=== PATIENT | female | born 1995 | race Caucasian/White ===

== ENCOUNTER → 2023-11-29 | Outpatient (CLI) | payer BC | LOC: LAB SHORT 17:23 → LAB 17:23 | PROVIDERS: Obstetrics & Gynecology | DX: Z01.419 Encounter for gynecological examination (general) (routine) without abnormal findings (principal) | CPT/HCPCS: G0123 ==

== ENCOUNTER → 2024-05-19 | Outpatient (CLI) | payer BC | LOC: LAB SHORT 16:26 → LAB 16:26 | DX: O09.93 Supervision of high risk pregnancy, unspecified, third trimester (principal) | CPT/HCPCS: 87081; 87150 ==

== ENCOUNTER 2024-06-11 18:45 | Inpatient (IN) | payer BC ==
[~2024-06-11] VITALS: Ht 180.3 cm; Wt 98.6 kg
[2024-06-11] MEDS ORDERED: OXYTOCIN/RINGER'S LACTATE 500 ML IV PRN ×2 (19:05→19:10)
[2024-06-11] MEDS ORDERED: Lactated Ringer's 1,000 ML IV PRN ×4 (19:05→19:10)
[2024-06-11] MEDS ORDERED: Misoprostol 200 MCG Tab BC PRN (19:05)
[2024-06-11] MEDS ORDERED: Misoprostol 200 MCG Tab PR PRN (19:05)
[2024-06-11] MEDS ORDERED: Tranexamic Acid 100 ML IV SCH (19:05)
[2024-06-11] MEDS ORDERED: Methylergonovine Maleate 0.2MG / ML 1ML Amp IM PRN (19:05)
[2024-06-11] MEDS ORDERED: Carboprost Tromethamine 250 MCG/ML 1ML Amp IM PRN (19:05)
[2024-06-11] MEDS ORDERED: Oxytocin 10 Unit / ML Vial IM PRN (19:05)
[2024-06-11] MEDS ORDERED: Misoprostol 25 MCG Tab VAG PRN (19:05)
[2024-06-11] MEDS ORDERED: FentaNYL 2mcg/ml-Bup 0.1% Epd 250 ML EPI PRN (19:05)
[2024-06-11] MEDS ORDERED: ePHEDrine Sulfate 50 MG/ML 1ML Injection XX PRN (19:05)
[2024-06-11] MEDS ORDERED: Acetaminophen 500 MG Tab PO PRN (19:10)
[2024-06-11] MEDS ORDERED: Calcium Carbonate 500 MG Tab Chew PO PRN (19:10)
[2024-06-11] MEDS ORDERED: Ondansetron HCl 2 MG / ML 2ML Vial IV PRN (19:10)
[2024-06-11] MEDS ORDERED: FentaNYL Citrate 50 MCG/ML 2 ML Injection IV PRN (19:15)
[2024-06-11 19:20] VITALS: BP 139/94
[2024-06-11 19:47] VITALS: BP 128/85
[2024-06-11 20:02] LABS: BASOPHILS ABSOLUTE AUTO 0.04 K/mm3 (0.00-0.23); BASOPHILS PERCENT AUTO 0 % (0-2); EOSINOPHILS ABSOLUTE AUTO 0.26 K/mm3 (0.00-0.68); EOSINOPHILS PERCENT AUTO 2 % (0-6); Hematocrit 30.3 % (33.0-51.0); Hemoglobin 10.8 g/dL (11.5-16.0); IMMATURE GRAN ABSOLUTE AUTO 0.09 K/mm3 (0.00-0.10); IMMATURE GRAN PERCENT AUTO 1 % (0-1); LYMPHOCYTES ABSOLUTE AUTO 2.43 K/mm3 (0.84-5.20); LYMPHOCYTES PERCENT AUTO 22 % (21-46); MONOCYTES ABSOLUTE AUTO 1.15 K/mm3 (0.16-1.47); MONOCYTES PERCENT AUTO 10 % (4-13); Mean Corpuscular HGB 30.3 pg (26.0-34.0); Mean Corpuscular HGB Conc 35.6 g/dL (31.5-36.5); Mean Corpuscular Volume 85 fL (80-100); Mean Platelet Volume 10.9 fL (9.1-12.4); NEUTROPHILS ABSOLUTE AUTO 7.28 K/mm3 (1.96-9.15); NEUTROPHILS PERCENT AUTO 65 % (41-73); Platelet Count 331 K/mm3 (150-400); RDW Standard Deviation 40.4 fL (35.1-46.3); Red Blood Cell Count 3.57 M/mm3 (3.80-5.20); White Blood Cell Count 11.25 K/mm3 (4.00-11.30)
[2024-06-11 20:31] VITALS: BP 132/87
[2024-06-11 21:01] VITALS: BP 124/82
[2024-06-11 21:31] VITALS: BP 124/81
[2024-06-11] MEDS ORDERED: Zolpidem Tartrate 10 MG Tab PO ONE (23:35)
[2024-06-11 23:51] VITALS: BP 136/87
[2024-06-12] VITALS (53 sets, daily range): BP systolic 113–145; BP diastolic 68–99
[2024-06-12] MEDS ORDERED: HYDHCL25 PO (02:05)
[2024-06-12] MEDS ORDERED: Witch Hazel/Glycerin PADS TOP PRN (19:40)
[2024-06-12] MEDS ORDERED: Ketorolac Tromethamine 30mg Vial IV PRN (19:40)
[2024-06-12] MEDS ORDERED: Carboprost Tromethamine 250 MCG/ML 1ML Amp IM PRN (19:45)
[2024-06-12] MEDS ORDERED: Docusate Sodium 100 MG Cap PO PRN (19:45)
[2024-06-12] MEDS ORDERED: Acetaminophen 500 MG Tab PO PRN (19:45)
[2024-06-12] MEDS ORDERED: Lactated Ringer's 1,000 ML IV SCH (19:45)
[2024-06-12] MEDS ORDERED: Misoprostol 200 MCG Tab PR PRN (19:45)
[2024-06-12] MEDS ORDERED: Methylergonovine Maleate 0.2MG / ML 1ML Amp IM PRN (19:45)
[2024-06-12] MEDS ORDERED: Measles/Mumps/Rubella Vaccine 0.5 ML Vial SC ONE (19:45)
[2024-06-12] MEDS ORDERED: OXYTOCIN/RINGER'S LACTATE 500 ML IV SCH (19:50)
[2024-06-12] MEDS ORDERED: Lanolin Cream TOP PRN (19:50)
[2024-06-12] MEDS ORDERED: Benzocaine Topical Anesthetic Spray 60GM TOP PRN (19:50)
[2024-06-13] VITALS (8 sets, daily range): BP systolic 128–140; BP diastolic 71–98
[2024-06-13] MEDS ORDERED: Prenatal Vit/FE Fumarate/FA 1 Tab PO SCH (09:00)
--- NOTE | 2024-06-13 18:08 | NUR ---
REVIEWED D/C INSTRUCTIONS WITH PT. PT HAS NO FURTHER QUESTIONS AT THIS TIME AND IS COMFORTABLE GOING HOME AFTER 24 HOUR TESTING IS COMPLETED.
[2024-06-13] MEDS ORDERED: HydrOXYzine Pamoate 50 MG Cap PO ONE (20:55)
--- NOTE | 2024-06-13 23:04 | NUR ---
DISCHARGE DISCHARGE PACKET COMPLETED WITH PT, PT WITH NO QUESTIONS OR CONCERNS AT THIS ITME. PT LEFT AMBULATORY WITH AND , BELONGINGS SENT WITH PT AND FAMILY. FLOOR AIDE ASSISTED TO CAR.
== END 2024-06-13 22:15 | disposition home or self-care (01) | DRG 807 ==
LOC: OBS 18:45 → BC 18:56
PROVIDERS: ADMIT Obstetrics & Gynecology
PROC: 3E0P7VZ Introduction of Hormone into Female Reproductive, Via Natural or Artificial Opening (ICD-10-PCS; 2024-06-11)
PROC: 4A1HXCZ Monitoring of Products of Conception, Cardiac Rate, External Approach (ICD-10-PCS; 2024-06-11)
PROC: 10E0XZZ Delivery of Products of Conception, External Approach (ICD-10-PCS; principal; 2024-06-12)
PROC: 0KQM0ZZ Repair Perineum Muscle, Open Approach (ICD-10-PCS; 2024-06-12)
PROC: 10907ZC Drainage of Amniotic Fluid, Therapeutic from Products of Conception, Via Natural or Artificial Opening (ICD-10-PCS; 2024-06-12)
PROC: 3E033VJ Introduction of Other Hormone into Peripheral Vein, Percutaneous Approach (ICD-10-PCS; 2024-06-12)
DX: O99.214 Obesity complicating childbirth (principal); Z37.0 Single live birth; Z3A.39 39 weeks gestation of pregnancy; O99.344 Other mental disorders complicating childbirth; F41.9 Anxiety disorder, unspecified; Z87.891 Personal history of nicotine dependence; O70.1 Second degree perineal laceration during delivery
CPT/HCPCS: 36415; 51702; 85025; 86850; 86900; 86901; 90471; 90707; A9270; J1885; J2405; J2590; J7120